=== PATIENT | male | born 1950 | race African-American/Black ===

== ENCOUNTER 2023-06-01 11:58 | Emergency (ER) | payer MEDICARE ==
[~2023-06-01] VITALS: Ht 185.4 cm; Wt 98.4 kg
[2023-06-01 12:07] VITALS: BP_SYST 148; PULSE 76; RESP 16; TEMP 98.3; O2SAT 97
[2023-06-01] MEDS ORDERED: IBUP-1971 PO (13:22)
[2023-06-01 14:16] VITALS: BP_SYST 155; PULSE 69; RESP 19; TEMP 97.5; O2SAT 97
== END 2023-06-01 14:10 | disposition home or self-care (01) ==
LOC: SED 11:58
DX: M25.462 Effusion, left knee (principal); M25.562 Pain in left knee; Z79.899 Other long term (current) drug therapy
CPT/HCPCS: 73560; 93971; 99284

== ENCOUNTER 2023-06-06 22:00 | Emergency (ER) | payer MEDICARE ==
[~2023-06-06] VITALS: Ht 188 cm; Wt 104.3 kg
[~2023-06-06 22:00] MED LIST: IBUP-1971 PO
[2023-06-06 22:22] VITALS: BP_SYST 127; PULSE 78; RESP 16; TEMP 98.3; O2SAT 97
[2023-06-07] MEDS: DIAMOX SEQUELS 500 MG CAPSULE.SA PO ONE (00:51)
[2023-06-07] MEDS: TIMOLOL MALEATE 0.25% OPHTHALMIC DROPS 5 ML OP ONE (01:46)
[2023-06-07] MEDS: BRIMONIDINE TARTRATE 0.2% 5 mL EYE DROPS OP ONE (01:53)
[2023-06-07] MEDS ORDERED: TETRACAINE HCL/PF 0.5% OPHTHALMIC DROPS 4 ML OP ONE (01:56)
[2023-06-07] MEDS ORDERED: FLUORESCEIN SODIUM 1 MG OPHTHALMIC STRIP OP ONE (01:56)
[2023-06-07] MEDS ORDERED: BALANCED SALT IRRIG SOLN 15 ML IO ONE (01:56)
[2023-06-07 03:55] VITALS: BP_SYST 138; PULSE 74; RESP 18; TEMP 97; O2SAT 97
== END 2023-06-07 03:55 | disposition home or self-care (01) ==
LOC: SED 22:00
DX: H11.422 Conjunctival edema, left eye (principal); H40.1120 Primary open-angle glaucoma, left eye, stage unspecified; I10 Essential (primary) hypertension; Z85.46 Personal history of malignant neoplasm of prostate; Z79.899 Other long term (current) drug therapy
CPT/HCPCS: 99291